=== PATIENT | male | born 1970 | race Caucasian/White ===

== ENCOUNTER 2020-03-24 19:23 | Emergency (ER) | payer MEDICAID ==
[~2020-03-24] VITALS: Ht 170.2 cm; Wt 100.0 kg
[2020-03-24 19:37] VITALS: BP 153/84
[2020-03-24] MEDS ORDERED: KETOROLAC 60MG/2ML VIAL IM STA (22:22)
[2020-03-24 22:34] LABS: BASOPHILS % 0.7 % (0.0-2.0); EOSINOPHILS % 0.6 % (0.0-5.0); HEMATOCRIT. 46.1 % (42.0-52.0); HEMOGLOBIN. 15.3 g/dL (14.0-18.0); MEAN CORPUSCULAR HEMOGLOBIN 29.3 pg (28.0-32.0); MEAN CORPUSCULAR VOLUME 88.5 fL (80.0-94.0); MEAN PLATELET VOLUME 7.7 fl (7.4-10.4); MONOCYTES % 4.4 % (2.0-8.0); NEUTROPHILS % 84.3 % (40.0-76.0); PLATELET 350 x1000/uL (130-400); RED BLOOD CELL COUNT 5.21 mill/uL (4.7-6.1); RED CELL DISTRIBUTION WIDTH 13.3 % (11.6-14.6)
[2020-03-24 22:40] LABS: CHLORIDE 109 mEq/L (98-107)
[2020-03-24 22:46] LABS: CLARITY URINE CLEAR (CLEAR); COLOR URINE YELLOW (YELLOW); KETONES URINE TRACE (NEGATIVE); LEUKOCYTE ESTERASE URINE TRACE (NEGATIVE); NITRITE URINE NEGATIVE (NEGATIVE); OCCULT BLOOD URINE 3+ (NEGATIVE); PH URINE 6.5 (4.5-8.0); PROTEIN URINE 1+ (NEGATIVE); SPECIFIC GRAVITY URINE 1.028 (1.005-1.030)
== END 2020-03-24 23:51 | disposition home or self-care (01) ==
LOC: ER 19:23
DX: N23 Unspecified renal colic (principal); F32.9 Major depressive disorder, single episode, unspecified
CPT/HCPCS: 36415; 74176; 80053; 81003; 83690; 85025; 93005; 96372; 99285; J1885

== ENCOUNTER 2020-04-29 14:24 | Emergency (ER) | payer MEDICAID ==
[~2020-04-29] VITALS: Ht 175.3 cm; Wt 95.0 kg
[2020-04-29 16:41] LABS: BASOPHILS % 1.2 % (0.0-2.0); EOSINOPHILS % 5.1 % (0.0-5.0); HEMATOCRIT. 44.1 % (42.0-52.0); HEMOGLOBIN. 14.7 g/dL (14.0-18.0); LYMPHOCYTES % 20.9 % (20.0-50.0); MEAN CORPUSCULAR HEMOGLOBIN 29.6 pg (28.0-32.0); MEAN CORPUSCULAR VOLUME 88.4 fL (80.0-94.0); MEAN PLATELET VOLUME 8.1 fl (7.4-10.4); MONOCYTES % 7.5 % (2.0-8.0); NEUTROPHILS % 65.3 % (40.0-76.0); PLATELET 298 x1000/uL (130-400); RED BLOOD CELL COUNT 4.98 mill/uL (4.7-6.1); RED CELL DISTRIBUTION WIDTH 14.3 % (11.6-14.6)
[2020-04-29 16:47] LABS: CHLORIDE 108 mEq/L (98-107)
[2020-04-29 16:51] LABS: ETHANOL BLOOD < 10 mg/dL
[2020-04-29 16:53] LABS: INR 0.9; PROTHROMBIN TIME 9.6 sec (9.6-11.0)
[2020-04-29] MEDS ORDERED: KETOROLAC 30MG/ML VIAL IV ONE (17:15)
[2020-04-29 17:58] VITALS: BP 194/104
== END 2020-04-29 18:05 | disposition home or self-care (01) ==
LOC: ER 14:24
DX: M79.89 Other specified soft tissue disorders (principal); Z87.442 Personal history of urinary calculi
CPT/HCPCS: 36415; 71045; 80053; 80320; 83880; 84484; 85025; 85610; 85730; 93005; 93970; 99285; J1885; G0480